=== PATIENT | male | born 1965 | race Caucasian/White ===

== ENCOUNTER → 2020-10-07 | Outpatient (CLI) | payer MEDICARE ==
[2020-10-07 11:12] LABS: Basophils # (A) 0.1 k/uL (0-0.2); Basophils % (A) 1 %; Eosinophils # (A) 0.1 k/uL (0-0.7); Eosinophils % (A) 1 %; HCT 45.5 % (39.0-53.0); HGB 15.1 gm/dL (13.0-17.5); Lymphocytes # (A) 1.3 k/uL (1.0-4.8); Lymphocytes % (A) 21 %; MCH 32.6 pg (25.0-35.0); MCHC 33.1 g/dL (31.0-37.0); MCV 98.7 fL (80.0-100.0); Mean Platelet Volume 8.5; Monocytes # (A) 0.5 k/uL (0-1.0); Monocytes % (A) 8 %; Neutrophils # (A) 4.4 k/uL (1.3-7.7); Neutrophils % (A) 68 %; Platelet Count 257 k/uL (150-450); RBC 4.61 m/uL (4.30-5.90); RDW 12.6 % (11.5-15.5); WBC 6.4 k/uL (3.8-10.6)
[2020-10-07 11:31] LABS: Appearance,Urine Clear (Clear); Bilirubin,Urine Negative (Negative); Blood,Urine Trace (Negative); Color,Urine Yellow; Glucose,Urine (UA) Negative (Negative); Ketones,Urine Negative (Negative); Leukocyte Esterase,Urine Negative (Negative); Mucus,Urine Occasional /hpf; Nitrite,Urine Negative (Negative); PH, Urine 5.5 (5.0-8.0); Protein,Urine Trace (Negative); RBC,Urine <1 /hpf (0-5); Specific Gravity,Urine 1.029 (1.001-1.035); Squamous Epithelial Cell,Urine 1 /hpf (0-4); Urobilinogen,Urine <2.0 mg/dL (<2.0); WBC,Urine 1 /hpf (0-5)
[2020-10-07 12:01] LABS: Calcium 9.6 mg/dL (8.4-10.2); Potassium 4.8 mmol/L (3.5-5.1)
== END | disposition home or self-care (01) ==
LOC: LABPAT 10:27
PROVIDERS: ATTEND Urology
DX: Z01.818 Encounter for other preprocedural examination (principal); N40.1 Benign prostatic hyperplasia with lower urinary tract symptoms
CPT/HCPCS: 36415; 80048; 81001; 85025; 87086

== ENCOUNTER 2020-10-14 10:47 | Day surgery (SDC) | payer MEDICARE ==
--- NOTE | 2020-10-06 16:51 | P.HPIHPCON ---
History of Present Illness H&P Date: 10/06/20 Chief Complaint: BPH Mr Finley is a 55 yo male with history of BPH. He has failed medical therapy. He underwent a cystoscopy that showed evidence of obstructive prostate. Discussed with him the option of doing a Urolfit versus TURP. Discussed the risk and benefit of each approach. He agreed to proceed with urolift. Discussed the risk of bleeding, infection, potential having persistent symptoms even with the Urolift. He understood all the risk and agreed to proceed Consent for Procedure: I have explained the operation/procedure to the patient, including the risks, benefits, side effects, alternative therapies (including not receiving the proposed treatment or service), the likelihood of the patient achieving his/her goals, and potential recuperation problems for the procedure/sedation/analgesia, as well as any blood products, if indicated. I also explained to the patient the risks, benefits and side effects of the alternatives, as well as the risks related to not receiving the proposed procedure, care, treatment, or services. Surgical - Exam - General well developed, well nourished, no distress, no pain - Eyes PERRL, normal ocular movement - ENT normal nares, normal mucosa - Respiratory normal expansion, normal respiratory effort - Abdomen Abdomen: soft, non tender - Psychiatric oriented to time, oriented to person, oriented to place Assessment and Plan Assessment: 55 yo male with hx of BPH -OR for Urolfit
[2020-10-10 10:46] VITALS: BMI 23.7
[~2020-10-14 10:47] MED LIST: CIPROFLOXACIN/DEXTROSE PMX 400 MG in DEXTROSE/WATER 1 200ML.BAG IVPB PRN; DEXAMETHASONE SOD PHOSPHATE 4 MG/ML 1 ML VIAL IV ONE; HYDROmorphone 0.5 MG/0.5 ML SYRINGE IVP PRN; LACTATED RINGERS 1,000 ML IV SCH; MIDAZOLAM 2 MG/2 ML VIAL IV PRN; ONDANSETRON 4 MG/2 ML VIAL IVP ONE; SCOPOLAMINE 1.5MG/72HR PATCH TRANSDERM ONE
[2020-10-14] MEDS ORDERED: LACTATED RINGERS 1,000 ML IV ONE ×2 (11:03)
[2020-10-14] MEDS ORDERED: KETAMINE 10 MG/ML 20 ML VIAL ONE (12:03)
[2020-10-14] MEDS ORDERED: PROPOFOL 10 MG/ML 20 ML VIAL IV ONE (12:03)
[2020-10-14] MEDS ORDERED: fentaNYL (PF) 50 MCG/ML 2 ML AMP ONE (12:03)
[2020-10-14] MEDS ORDERED: MIDAZOLAM 2 MG/2 ML VIAL ONE (12:03)
[2020-10-14 12:51] VITALS: TEMP 97.1
[2020-10-14 13:32] VITALS: RESP 16
[2020-10-14 14:13] VITALS: BP 122/71; PULSE 48
--- NOTE | 2020-10-27 22:11 | P.OP ---
Date of Procedure: 10/14/20 Preoperative Diagnosis: BPH Postoperative Diagnosis: Same Procedure(s) Performed: Cystoscopy, Urolift implant X 6 Implants: Urolift implant X 6 Anesthesia: other (sedation ) Surgeon: Taqueria Paiz Estimated Blood Loss (ml): 5 Pathology: none sent Condition: stable Disposition: PACU Indications for Procedure: Mr Finley is a 55 yo male with history of BPH. He has failed medical therapy. He underwent a cystoscopy that showed evidence of obstructive prostate. Discussed with him the option of doing a Urolfit versus TURP. Discussed the risk and benefit of each approach. He agreed to proceed with urolift. Discussed the risk of bleeding, infection, potential having persistent symptoms even with the Urolift. He understood all the risk and agreed to proceed Operative Findings: bilateral obstructive lateral lobes Description of Procedure: Patient was brought to the operating room, general anesthesia was induced. He was prepped and draped in sterile fashion a placemed in dorsal lithotomy p osition. Cystoscopy fitted with 21-Mosotho sheath was inserted per urethra, cystoscopy was performed which showed no abnormality within the bladder, of note patient had bilateral obstructive lateral lobes. Attention was then carried to the urolift implants. A total of 6 implants were placed, 3 on the right side, and 3 on the left side. Implants were placed distal to the bladder neck, but proximal to the Veru. Repeat cystoscopy showed no evidence of implant perforation into the bladder. Repeat cystoscopy also demonstrated an open anterior channel within the prostate. There was no evidence of bleeding, bladder was emptied at end of the case. Patient tolerated the procedure well was taken to PACU in stable condition
== END 2020-10-14 14:25 | disposition home or self-care (01) ==
LOC: OR 10:47
PROVIDERS: ATTEND Urology
DX: N40.1 Benign prostatic hyperplasia with lower urinary tract symptoms (principal); Z95.1 Presence of aortocoronary bypass graft; Z88.0 Allergy status to penicillin
CPT/HCPCS: C9740; L8699; J2250; J1100; J2405; J3010; J0744; J2704; J1170